=== PATIENT | male | born 1945 | race Caucasian/White ===

== ENCOUNTER 2016-10-04 06:08 | Day surgery (SDC) | payer OTHER ==
--- NOTE | ~2016-10-04 | EGD ---
EGD REPORT [facility] [address] [address] NAME: RADHA REED : [birth year] STATUS : [place] [facility] [place] PAT#: [id number] AGE: 70 ADM/REG DATE : 10/04/16 MR#: [id number] REPORT SERV DATE: 10/04/16 DICTATED BY: JAZMINE YEBOAH DATE: 10/04/16 REPORT STATUS : Draft TRANSCRIBED BY: [facility] DATE: 10/04/16 Endoscopy Center Patient Name: Radha Reed Date of : 1945 Attending MD: JAZMINE YEBOAH MD Procedure Date No Time: 10/04/2016 Procedure: Colonoscopy Indications: High risk colon cancer surveillance: Personal history of colonic polyps Referring MD: JAZMINE KENDRICK MD Medicines: as per anesthesia Complications: No immediate complications. Procedure: Pre-Anesthesia Assessment: - ASA Grade Assessment: II - A patient with mild systemic disease. After I obtained informed consent, the scope was passed under direct vision. Throughout the procedure, the patient's blood pressure, pulse, and oxygen saturations were monitored continuously. The PCF [id number] was introduced through the anus and advanced to the cecum, identified by appendiceal orifice and ileocecal valve. The colonoscopy was performed without difficulty. The patient tolerated the procedure. The quality of the bowel preparation was adequate to identify polyps. Findings: The perianal and digital rectal examinations were normal. Internal hemorrhoids were found during endoscopy and were mild. Impression: - Internal hemorrhoids. Recommendation: - Repeat colonoscopy in 5 years for surveillance. Procedure Code(s): --- Professional --- 60884, Colonoscopy, flexible, proximal to splenic flexure; diagnostic, with or without collection of specimen(s) by brushing or washing, with or without colon decompression (separate procedure) Diagnosis Code(s): --- Professional --- K64.8, Other hemorrhoids Z86.010, Personal history of colonic polyps CPT copyright 2013 [employer]. All rights reserved. EGD REPORT [facility] [address] [place]. [address] NAME: RADHA REED : [birth year] STATUS : [place] [facility] [place] PAT#: [id number] AGE: 70 ADM/REG DATE : 10/04/16 MR#: [id number] REPORT SERV DATE: 10/04/16 DICTATED BY: JAZMINE YEBOAH. DATE: 10/04/16 REPORT STATUS : Draft TRANSCRIBED BY: [employer] DATE: 10/04/16 The codes documented in this report are preliminary and upon host/hostess restaurant review may be revised to meet current compliance requirements. JAZMINE YEBOAH MD 10/04/2016 8:16 AM This report has been signed electronically. Number of Addenda: 0 Note Initiated On: 10/04/2016 7:50 AM Scope Withdrawal Time 0 hours 6 minutes 26 seconds [id number] [place] [id number]
[~2016-10-04 06:08] MED LIST: ASAB PO; CALTRA600D PO; CIALIS5 MG PO; GARLIC PO; KLONO5 PO; L-LYSINE500 M1 PO; LOP25 PO; LOP50 PO; LORTAB10 PO; LYSINE PO; MAG OXIDE250 MG PO; MELATONIN5 M1 PO; METOPROLOL PO; MULTIPLE VIT PO; NEXIUM40 PO; NORV25 PO; ORAZINC110 MG PO; PRIN10 PO; PROSCAR5 PO; RAPAFLO PO; RAPAFLO8 MG PO; RAPIFLOW PO; SAW PALMETTO PO; SUPER B COMP PO; UNABLE TO COMPLETE; VITAMIN D3 PO; VITC500 PO; [UNRECOGNIZED DRUG - OTHER]; [UNRECOGNIZED DRUG - REMARK] PO
== END 2016-10-04 23:59 | disposition home or self-care (01) ==
LOC: DMU 06:08
PROVIDERS: Internal Medicine Gastroenterology
PROC: 0DJD8ZZ Inspection of Lower Intestinal Tract, Via Natural or Artificial Opening Endoscopic (ICD-10-PCS; principal; 2016-10-04 07:30)
DX: Z12.11 Encounter for screening for malignant neoplasm of colon (principal); K64.8 Other hemorrhoids; Z86.010 Personal history of colon polyps; I10 Essential (primary) hypertension; K21.9 Gastro-esophageal reflux disease without esophagitis; M54.5 Low back pain; Z79.899 Other long term (current) drug therapy; Z90.49 Acquired absence of other specified parts of digestive tract; Z98.890 Other specified postprocedural states